=== PATIENT | female | born 1945 | race Caucasian/White ===

== ENCOUNTER 2022-10-17 08:52 | Inpatient (IN) | payer OTHER, BC ==
[~2022-10-17] VITALS: Ht 165.1 cm; Wt 63.5 kg
[2022-10-17 08:57] VITALS: BP_SYST 107
[2022-10-17 09:26] LABS: BASOPHILS # (AUTO) 0.1 K/uL (0.0-0.2); BASOPHILS % (AUTO) 0.7 % (0.0-2.0); EOSINOPHILS % (AUTO) 0.5 % (0.0-4.0); HEMATOCRIT 40.5 % (36-48); HEMOGLOBIN 13.7 g/dL (12.0-16.0); LYMPHOCYTES # (AUTO) 1.2 K/uL (1.0-5.5); LYMPHOCYTES % (AUTO) 15.1 % (20.5-51.5); MEAN CORPUSCULAR HEMOGLOBIN 32 pg (27-31); MEAN CORPUSCULAR HGB CONC 34 % (32-36); MEAN CORPUSCULAR VOLUME 94 fL (79.0-98.0); MONOCYTES # (AUTO) 0.6 K/uL (0.0-1.0); MONOCYTES % (AUTO) 7.8 % (1.7-9.3); NEUTROPHILS % (AUTO) 75.9 % (40.0-70.0); PLATELET COUNT (AUTO) 302 K/uL (130-430); RED BLOOD CELL COUNT(AUTO) 4.33 MIL/uL (4.2-6.2); RED CELL DISTRIBUTION WIDTH 12.8 % (9.0-15.0); WHITE BLOOD COUNT (AUTO) 7.9 K/uL (4.8-10.8)
[2022-10-17 09:42] LABS: PROTHROMBIN TIME 10.5 SECS (9.5-12.5)
[2022-10-17 09:45] LABS: ANION GAP 12 (5-15); CALCIUM 9.7 mg/dL (8.4-11.0); CHLORIDE 103 mmol/L (98-107); CREATININE 1.08 mg/dL (0.55-1.30); GLUCOSE 180 mg/dL (70-99); UREA NITROGEN, BLOOD 12 mg/dL (8-21)
[2022-10-17 09:51] LABS: ALANINE AMINOTRANSFERASE 24 U/L (12-78); ALBUMIN 3.7 g/dL (3.4-4.8); ASPARTATE AMINOTRANSFERASE 22 U/L (10-37); TOTAL BILIRUBIN 0.6 mg/dL (0.0-1.0)
[2022-10-17 09:58] LABS: FREE T4 (FREE THYROXINE) 0.9 ng/dL (0.6-1.6)
[2022-10-17] MEDS: NACL 0.9% 1,000 ML IV SCH (11:30)
[2022-10-17] MEDS ORDERED: POTASSIUM CHLORIDE 20 MEQ TAB.PRT.SR PO PRN (11:30)
[2022-10-17] MEDS ORDERED: ZOLPIDEM TARTRATE 5 MG TABLET PO PRN (11:30)
[2022-10-17] MEDS ORDERED: ACETAMINOPHEN 325 MG TABLET PO PRN ×2 (11:30→12:00)
[2022-10-17] MEDS ORDERED: MUPIROCIN 2% TOPICAL OINTMENT 22 GM NS PRN (11:30)
[2022-10-17] MEDS ORDERED: LORazepam 2 MG/ML VIAL IVP PRN (11:30)
[2022-10-17] MEDS ORDERED: ASPIRIN 81 MG TABLET(ECOTRIN) PO ONE (11:30)
[2022-10-17] MEDS ORDERED: MAGNESIUM SULFATE 50 ML IV PRN (11:30)
[2022-10-17] MEDS ORDERED: ONDANSETRON HCL 4 MG/2 ML VIAL IVP PRN (11:30)
[2022-10-17] MEDS ORDERED: DOCUSATE SODIUM 100 MG CAPSULE PO PRN (11:30)
[2022-10-17] MEDS ORDERED: MORPHINE 2 MG/ML INJ. SYRINGE IVP PRN ×2 (11:30)
[2022-10-17] MEDS ORDERED: ENOXAPARIN SODIUM 30 MG/0.3 ML SYRINGE SUBCUT ONE (12:15)
[2022-10-17] MEDS ORDERED: ASPIRIN 81 MG TAB.CHEW ONE (13:55)
[2022-10-17 14:50] VITALS: BP_SYST 144
[2022-10-17] MEDS ORDERED: PRO20 PO (16:27)
[2022-10-17] MEDS ORDERED: RANO500T4 PO (16:27)
[2022-10-17] MEDS ORDERED: PANTOPRAZOLE SODIUM 40 MG TAB PO ONE (17:00)
[2022-10-17 20:00] VITALS: BP_SYST 145
[2022-10-18 00:25] VITALS: BP_SYST 148
[2022-10-18] MEDS: NACL 0.9% 1,000 ML IV SCH ×2 (04:38→17:19)
[2022-10-18 07:53] VITALS: BP_SYST 147
[2022-10-18 08:13] LABS: ANION GAP 8 (5-15); CALCIUM 9.5 mg/dL (8.4-11.0); CHLORIDE 103 mmol/L (98-107); CREATININE 0.76 mg/dL (0.55-1.30); GLUCOSE 101 mg/dL (70-99); UREA NITROGEN, BLOOD 18 mg/dL (8-21)
[2022-10-18 08:17] LABS: BASOPHILS % (AUTO) 0.7 % (0.0-2.0); EOSINOPHILS % (AUTO) 0.9 % (0.0-4.0); HEMATOCRIT 40.1 % (36-48); HEMOGLOBIN 13.6 g/dL (12.0-16.0); LYMPHOCYTES # (AUTO) 1.4 K/uL (1.0-5.5); LYMPHOCYTES % (AUTO) 25.8 % (20.5-51.5); MEAN CORPUSCULAR HEMOGLOBIN 32 pg (27-31); MEAN CORPUSCULAR HGB CONC 34 % (32-36); MEAN CORPUSCULAR VOLUME 94 fL (79.0-98.0); MONOCYTES # (AUTO) 0.4 K/uL (0.0-1.0); NEUTROPHILS # (AUTO) 3.4 K/uL (1.8-7.7); NEUTROPHILS % (AUTO) 64.6 % (40.0-70.0); PLATELET COUNT (AUTO) 304 K/uL (130-430); RED BLOOD CELL COUNT(AUTO) 4.27 MIL/uL (4.2-6.2); RED CELL DISTRIBUTION WIDTH 13.1 % (9.0-15.0); WHITE BLOOD COUNT (AUTO) 5.3 K/uL (4.8-10.8)
[2022-10-18 08:31] LABS: ALANINE AMINOTRANSFERASE 23 U/L (12-78); ALBUMIN 3.7 g/dL (3.4-4.8); ASPARTATE AMINOTRANSFERASE 21 U/L (10-37); CHOLESTEROL 231 mg/dL (<200); HDL CHOLESTEROL 56 mg/dL (>55); TOTAL BILIRUBIN 0.6 mg/dL (0.0-1.0); TRIGLYCERIDES 167 mg/dL (30-150)
[2022-10-18] MEDS: PANTOPRAZOLE SODIUM 40 MG TAB PO SCH (09:00)
[2022-10-18] MEDS: FLUoxetine HCL 20 MG CAPSULE (PROzac) PO SCH (09:00)
[2022-10-18] MEDS: RANOLAZINE 500 MG TAB.SR.12H PO SCH (09:00)
[2022-10-18] MEDS: METOPROLOL SUCCINATE 50 MG TAB.SR.24H (TOPROL XL) PO SCH (09:01)
[2022-10-18] MEDS: ENOXAPARIN SODIUM 30 MG/0.3 ML SYRINGE SUBCUT SCH (09:02)
[2022-10-18 11:32] VITALS: BP_SYST 143
[2022-10-18 15:38] VITALS: BP_SYST 129
[2022-10-18 19:54] VITALS: BP_SYST 134
[2022-10-19 01:42] VITALS: BP_SYST 159
[2022-10-19 05:33] LABS: BASOPHILS % (AUTO) 0.8 % (0.0-2.0); EOSINOPHILS # (AUTO) 0.1 K/uL (0.0-0.4); HEMATOCRIT 36.5 % (36-48); HEMOGLOBIN 12.5 g/dL (12.0-16.0); LYMPHOCYTES # (AUTO) 1.9 K/uL (1.0-5.5); LYMPHOCYTES % (AUTO) 33.5 % (20.5-51.5); MEAN CORPUSCULAR HEMOGLOBIN 32 pg (27-31); MEAN CORPUSCULAR HGB CONC 34 % (32-36); MEAN CORPUSCULAR VOLUME 93 fL (79.0-98.0); MONOCYTES # (AUTO) 0.5 K/uL (0.0-1.0); MONOCYTES % (AUTO) 9.3 % (1.7-9.3); NEUTROPHILS # (AUTO) 3.1 K/uL (1.8-7.7); NEUTROPHILS % (AUTO) 54.4 % (40.0-70.0); PLATELET COUNT (AUTO) 279 K/uL (130-430); RED BLOOD CELL COUNT(AUTO) 3.95 MIL/uL (4.2-6.2); RED CELL DISTRIBUTION WIDTH 12.5 % (9.0-15.0); WHITE BLOOD COUNT (AUTO) 5.8 K/uL (4.8-10.8)
[2022-10-19 05:53] LABS: ANION GAP 8 (5-15); CALCIUM 9.4 mg/dL (8.4-11.0); CHLORIDE 106 mmol/L (98-107); CREATININE 0.66 mg/dL (0.55-1.30); GLUCOSE 97 mg/dL (70-99); UREA NITROGEN, BLOOD 13 mg/dL (8-21)
[2022-10-19] MEDS ORDERED: METO50TA7 PO (08:20)
[2022-10-19] MEDS: PANTOPRAZOLE SODIUM 40 MG TAB PO SCH (09:17)
[2022-10-19] MEDS: FLUoxetine HCL 20 MG CAPSULE (PROzac) PO SCH (09:17)
[2022-10-19] MEDS: RANOLAZINE 500 MG TAB.SR.12H PO SCH (09:18)
[2022-10-19] MEDS: METOPROLOL SUCCINATE 50 MG TAB.SR.24H (TOPROL XL) PO SCH (09:18)
[2022-10-19] MEDS: ENOXAPARIN SODIUM 30 MG/0.3 ML SYRINGE SUBCUT SCH (09:19)
[2022-10-19 11:29] VITALS: BP_SYST 118
[2022-10-19 14:02] LABS: BILIRUBIN,URINE NEGATIVE (NEGATIVE); BLOOD, URINE 1+ (NEGATIVE); CLARITY/URINE CLOUDY (CLEAR); COLOR,URINE YELLOW (YELLOW); GLUCOSE,URINE NEGATIVE (NEGATIVE); KETONES,URINE NEGATIVE (NEGATIVE); LEUKOCYTE ESTERASE ,URINE 3+ (NEGATIVE); NITRITE, URINE NEGATIVE (NEGATIVE); PROTEIN URINE NEGATIVE (NEGATIVE); UROBILINOGEN,URINE 0.2 (0.2-1.0)
[2022-10-19 14:18] LABS: BACTERIA,URINE MODERATE /HPF (None Seen); MUCUS,URINE 1+ /LPF (None Seen); WBC,URINE 80-100 /HPF (0-3)
[2022-10-19 14:21] VITALS: BP_SYST 125
== END 2022-10-19 15:05 | disposition home or self-care (01) | DRG 281 ==
LOC: SED 08:52 → STU 11:23
PROVIDERS: ADMIT General Practice; ATTEND General Practice
DX: I47.1 Supraventricular tachycardia (principal); I21.A1 Myocardial infarction type 2; R65.10 Systemic inflammatory response syndrome (SIRS) of non-infectious origin without acute organ dysfunction; F32.A Depression, unspecified; Z90.710 Acquired absence of both cervix and uterus; I25.10 Atherosclerotic heart disease of native coronary artery without angina pectoris
CPT/HCPCS: 36415; 71045; 80048; 80053; 80061; 81000; 82550; 83037; 83735; 83880; 84439; 84443; 84484; 85025; 85610-TC; 85730-TC; 87086; 93005; 93306; 96372; 99285; G0378; J1650; J7030